=== PATIENT | male | born 1995 | race African-American/Black ===

== ENCOUNTER → 2018-09-22 | Outpatient (CLI) | payer OTHER ==
--- NOTE | 2018-09-22 10:03 | REP ---
CT Head without contrast HISTORY: Neck pain COMPARISON: None There is no intraparenchymal hemorrhage, acute infarct, mass or midline shift. The ventricular system is normal in appearance. There is no extra cerebral collection. There is no fracture. Mucosal thickening is present in the ethmoid IMPRESSION: There is no intracranial lesion. Electronically Signed by Santo Ruiz MD 09/22/2018 09:54 A
--- NOTE | 2018-09-22 10:05 | REP ---
CT cervical spine without contrast HISTORY: Neck pain COMPARISON: None There is no acute fracture or subluxation. There is no disc bulge or herniation. The spinal canal and neural foramina are patent. The intervertebral discs and vertebral bodies are normal in height. IMPRESSION: There is no acute fracture or subluxation. Electronically Signed by Santo Ruiz MD 09/22/2018 09:57 A
== END ==
LOC: M RAD 09:10
PROVIDERS: ATTEND Physician Assistant
DX: M54.2 Cervicalgia (principal)